=== PATIENT | male | born 1980 | race Caucasian/White ===

== ENCOUNTER 2021-06-05 16:28 | Inpatient (IN) | payer OTHER ==
[~2021-06-05] VITALS: Ht 185.4 cm; Wt 106.6 kg
[~2021-06-05 16:28] MED LIST: KEFLEX250 MG PO
[2021-06-05 17:50] LABS: BASOPHIL 0.2 % (0-2); EOSINOPHIL 0.5 % (0-5); HCT 50.6 % (42.0-52.0); HGB 17.7 g/dl (13.2-18.0); MCH 30.7 pg (25.0-31.0); MCV 87.8 fL (78.0-100.0); MONOCYTE 4.7 % (0-12); MPV 9.1 fL (6.0-9.5); NEUTROPHIL 85.2 % (41-80); NRBC 0; PLT 278 K/uL (150-400); RBC 5.76 M/uL (4.70-6.00); RDW 12.7 % (11.5-14.0); WBC 18.2 K/uL (4.0-10.5)
[2021-06-05 18:03] LABS: BILIRUBIN NEGATIVE (NEGATIVE); BLOOD NEGATIVE Ery/uL (NEGATIVE); CLARITY CLEAR (CLEAR); COLOR YELLOW (YELLOW); GLUCOSE (U) NORMAL (NORMAL); LEUKOCYTES NEGATIVE Leu/uL (NEGATIVE); NITRITE NEGATIVE (NEGATIVE); PROTEIN NEGATIVE (NEGATIVE); SPECIFIC GRAVITY 1.025 (1.001-1.030); UROBILINOGEN 0.2 mg/dL (0.2-1.0)
[2021-06-05 18:15] LABS: BUN/CREAT RATIO (CALC) 9.4 RATIO; CREATININE 0.96 mg/dL (0.67-1.17)
[2021-06-05 18:39] LABS: LACTIC ACID 2.1 mmol/L (0.4-1.9)
[2021-06-05 19:59] LABS: CORONAVIRUS 2019 SARS-COV-2 NEGATIVE (NEGATIVE); INFLUENZA A NAA NEGATIVE (NEGATIVE)
[2021-06-05 20:12] LABS: C-REACTIVE PROTEIN 0.2 mg/dL (<=0.90); MAGNESIUM 1.7 mg/dL (1.8-2.4)
[2021-06-05] MEDS ORDERED: WELLBUTRIN XL150 MG PO (21:11)
[2021-06-05] MEDS ORDERED: DEPO-TESTO200 MG/1 M IM (21:15)
--- NOTE | 2021-06-06 02:05 | NUR ---
0001 PATIENT NPO AT THIS TIME. USING HOME CPAP MACHINE. AT BEDSIDE.
[2021-06-06 07:02] LABS: BASOPHIL 0.2 % (0-2); EOSINOPHIL 0.7 % (0-5); HCT 44.6 % (42.0-52.0); HGB 15.7 g/dl (13.2-18.0); LYMPHOCYTE 15.5 % (15-48); MCH 31.3 pg (25.0-31.0); MCHC 35.2 g/dL (32.0-36.0); MCV 88.8 fL (78.0-100.0); MONOCYTE 7.8 % (0-12); MPV 9.1 fL (6.0-9.5); NEUTROPHIL 75.2 % (41-80); NRBC 0; PLT 240 K/uL (150-400); RBC 5.02 M/uL (4.70-6.00); RDW 12.9 % (11.5-14.0); WBC 17.7 K/uL (4.0-10.5)
[2021-06-06 07:22] LABS: INR 1.28 (0.9-1.2); PROTHROMBIN TIME 15.3 SECONDS (11.8-13.4)
[2021-06-06 07:51] LABS: ALBUMIN 3.2 g/dL (3.4-5.0); BILIRUBIN - TOTAL 1.9 mg/dL (0.2-1.0); BUN/CREAT RATIO (CALC) 6.8 RATIO; CREATININE 1.17 mg/dL (0.67-1.17); GLOBULIN (CALCULATION) 2.7 g/dL; POTASSIUM 4.3 mmol/L (3.5-5.1); TOTAL PROTEIN 5.9 g/dL (6.4-8.2)
[2021-06-07 06:43] LABS: BASOPHIL 0.2 % (0-2); EOSINOPHIL 0.8 % (0-5); HCT 42.1 % (42.0-52.0); HGB 14.5 g/dl (13.2-18.0); LYMPHOCYTE 15.3 % (15-48); MCH 30.8 pg (25.0-31.0); MCHC 34.4 g/dL (32.0-36.0); MCV 89.4 fL (78.0-100.0); MONOCYTE 8.1 % (0-12); MPV 9.2 fL (6.0-9.5); NEUTROPHIL 75.1 % (41-80); NRBC 0; PLT 202 K/uL (150-400); RBC 4.71 M/uL (4.70-6.00); RDW 12.7 % (11.5-14.0); WBC 14.6 K/uL (4.0-10.5)
[2021-06-07 07:08] LABS: ALBUMIN 3.1 g/dL (3.4-5.0); BILIRUBIN - TOTAL 2.2 mg/dL (0.2-1.0); BUN/CREAT RATIO (CALC) 5.3 RATIO; CREATININE 1.13 mg/dL (0.67-1.17); GLOBULIN (CALCULATION) 2.8 g/dL; POTASSIUM 4.2 mmol/L (3.5-5.1); TOTAL PROTEIN 5.9 g/dL (6.4-8.2)
[2021-06-08 05:40] LABS: BASOPHIL 0.3 % (0-2); EOSINOPHIL 1.1 % (0-5); HCT 44.2 % (42.0-52.0); HGB 15.3 g/dl (13.2-18.0); LYMPHOCYTE 20.5 % (15-48); MCH 30.8 pg (25.0-31.0); MCHC 34.6 g/dL (32.0-36.0); MCV 88.9 fL (78.0-100.0); MONOCYTE 9.6 % (0-12); MPV 9.2 fL (6.0-9.5); NRBC 0; PLT 226 K/uL (150-400); RBC 4.97 M/uL (4.70-6.00); RDW 12.5 % (11.5-14.0); WBC 12.9 K/uL (4.0-10.5)
[2021-06-08 06:21] LABS: ALBUMIN 3.1 g/dL (3.4-5.0); BILIRUBIN - TOTAL 1.2 mg/dL (0.2-1.0); BUN/CREAT RATIO (CALC) 7.4 RATIO; CREATININE 1.21 mg/dL (0.67-1.17); GLOBULIN (CALCULATION) 3.2 g/dL; POTASSIUM 4.5 mmol/L (3.5-5.1); TOTAL PROTEIN 6.3 g/dL (6.4-8.2)
[2021-06-08] MEDS ORDERED: HYDROCODON-ACE1 EAC6 PO (11:54)
[2021-06-08] MEDS ORDERED: LEVAQUIN750 MG PO (11:54)
[2021-06-08] MEDS ORDERED: METRONIDAZOLE500 MG PO (11:54)
== END 2021-06-08 12:48 | disposition home or self-care (01) | DRG 392 ==
LOC: FER 16:28 → FMS 18:31
PROVIDERS: Allergy & Immunology Allergy; Emergency Medicine; Nurse Practitioner; ADMIT Family Medicine
DX: K57.20 Diverticulitis of large intestine with perforation and abscess without bleeding (principal); Z20.822 Contact with and (suspected) exposure to COVID-19; E29.1 Testicular hypofunction; F17.290 Nicotine dependence, other tobacco product, uncomplicated; K76.0 Fatty (change of) liver, not elsewhere classified; R79.89 Other specified abnormal findings of blood chemistry; F41.8 Other specified anxiety disorders; N32.89 Other specified disorders of bladder; Z90.49 Acquired absence of other specified parts of digestive tract; Z79.899 Other long term (current) drug therapy
CPT/HCPCS: 36415; 76705; 80048; 80053; 80061; 81003; 83036; 83605; 83735; 84145; 85025; 85610; 85730; 86140; 87040; C9113; J1885; J2270; J2405; J2543; J7030; U0002